=== PATIENT | female | born 1990 | race American Indian/Alaskan Native ===

== ENCOUNTER 2021-05-23 10:50 | Emergency (ER) | payer MEDICARE, OTHER ==
[2021-05-23 11:21] VITALS: BP 117/75
[2021-05-23] MEDS ORDERED: MECLIZINE 25 MG TAB PO ONE (11:29)
[2021-05-23 11:52] LABS: Basophils % (Auto) 0.3 % (0.0-1.8); Eosinophils # (Auto) 0.2 K/mm3 (0.0-0.4); Eosinophils % (Auto) 2.2 % (0.0-4.3); Lymphocytes # (Auto) 2.4 K/mm3 (1.2-5.4); Lymphocytes % (Auto) 32.5 % (13.4-35.0); Mean Corpuscular HGB Conc 31 % (30-34); Mean Corpuscular Volume 77 fl (79-97); Monocytes # (Auto) 0.5 K/mm3 (0.0-0.8); Monocytes % (Auto) 6.8 % (0.0-7.3); Platelet Count 415 K/mm3 (140-440); Red Cell Distribution Width 16.3 % (13.2-15.2)
--- NOTE | 2021-05-23 12:01 | Emergency Department Report ---
- General Chief Complaint: Dizziness Stated Complaint: COLD AND CONGESTION Time Seen by Provider: 05/23/21 11:21 Source: patient Mode of arrival: Ambulatory Limitations: No Limitations - History of Present Illness Initial Comments: Patient is a 30-year-old female presents emergency room complaints of "cold-like symptoms" that began 4 days ago. Patient states that she also got her fianc sick as well. She has associated cough, congestion, rhinorrhea, chills, generalized body aches, fatigue, dizziness, generalized weakness, nausea, intermittent vomiting. She is able to tolerate p.o. intake. She states initially she had a fever but it is resolved. She denies any known sick contacts or recent travel. She has not been vaccinated for COVID-19. No past medical history. No allergies to medications. - Related Data Previous Rx's Medication Instructions Recorded Last Taken Type Benzonatate [Tessalon Perles] 100 mg PO Q8HR PRN #12 capsule 05/23/21 Unknown Rx Meclizine [Antivert] 25 mg PO TID PRN #21 tablet 05/23/21 Unknown Rx guaiFENesin ER [Mucinex ER] 600 mg PO Q12H #12 tablet.er 05/23/21 Unknown Rx Allergies Allergy/AdvReac Type Severity Reaction Status Date / Time No Known Allergies Allergy Unverified 05/23/21 11:14 ED Review of Systems ROS: Stated complaint: COLD AND CONGESTION Other details as noted in HPI Comment: All other systems reviewed and negative ED Past Medical Hx - Past Medical History Previous Medical History?: No - Surgical History Past Surgical History?: No - Medications Home Medications: Home Medications Medication Instructions Recorded Confirmed Last Taken Type Benzonatate [Tessalon Perles] 100 mg PO Q8HR PRN #12 capsule 05/23/21 Unknown Rx Meclizine [Antivert] 25 mg PO TID PRN #21 tablet 05/23/21 Unknown Rx guaiFENesin ER [Mucinex ER] 600 mg PO Q12H #12 tablet.er 05/23/21 Unknown Rx ED Physical Exam - General Limitations: No Limitations General appearance: alert, in no apparent distress - Head Head exam: Present: atraumatic, normocephalic - Eye Eye exam: Present: normal appearance - ENT ENT exam: Present: normal orophraynx, mucous membranes moist, TM's normal bilaterally, normal external ear exam - Respiratory Respiratory exam: Present: normal lung sounds bilaterally. Absent: respiratory distress, wheezes, rales, rhonchi, stridor, chest wall tenderness, accessory muscle use, decreased breath sounds, prolonged expiratory - Cardiovascular Cardiovascular Exam: Present: regular rate, normal rhythm, normal heart sounds. Absent: systolic murmur, diastolic murmur, rubs, gallop - Neurological Exam Neurological exam: Present: alert, oriented X3 - Psychiatric Psychiatric exam: Present: normal affect, normal mood - Skin Skin exam: Present: warm, dry, intact ED Course Vital Signs 05/23/21 11:20 Temperature 98.1 F Pulse Rate 85 Respiratory 18 Rate Blood Pressure 117/75 O2 Sat by Pulse 97 Oximetry ED Medical Decision Making - Lab Data Result diagrams: 05/23/21 11:37 05/23/21 11:37 Lab Results 05/23/21 05/23/21 Range/Units 11:37 11:37 WBC 7.5 (4.5-11.0) K/mm3 RBC 5.50 H (3.65-5.03) M/mm3 Hgb 13.0 (10.1-14.3) gm/dl Hct 42.3 (30.3-42.9) % MCV 77 L (79-97) fl MCH 24 L (28-32) pg MCHC 31 (30-34) % RDW 16.3 H (13.2-15.2) % Plt Count 415 (140-440) K/mm3 Lymph % (Auto) 32.5 (13.4-35.0) % Maverick % (Auto) 6.8 (0.0-7.3) % Eos % (Auto) 2.2 (0.0-4.3) % Baso % (Auto) 0.3 (0.0-1.8) % Lymph # (Auto) 2.4 (1.2-5.4) K/mm3 Maverick # (Auto) 0.5 (0.0-0.8) K/mm3 Eos # (Auto) 0.2 (0.0-0.4) K/mm3 Baso # (Auto) 0.0 (0.0-0.1) K/mm3 Seg Neutrophils % 58.2 (40.0-70.0) % Seg Neutrophils # 4.4 (1.8-7.7) K/mm3 Sodium 137 (137-145) mmol/L Potassium 4.0 (3.6-5.0) mmol/L Chloride 99.3 (98-107) mmol/L Carbon Dioxide 25 (22-30) mmol/L Anion Gap 17 mmol/L BUN 13 (7-17) mg/dL Creatinine 0.6 (0.6-1.2) mg/dL Estimated GFR > 60 ml/min BUN/Creatinine Ratio 22 % Glucose 115 H (65-100) mg/dL Calcium 9.5 (8.4-10.2) mg/dL Total Bilirubin 0.20 (0.1-1.2) mg/dL AST 12 (5-40) units/L ALT 13 (7-56) units/L Alkaline Phosphatase 101 (35-129) units/L Total Protein 8.8 H (6.3-8.2) g/dL Albumin 4.0 (3.9-5) g/dL Albumin/Globulin Ratio 0.8 % - Radiology Data Radiology results: report reviewed Ordering Physician: ANY ZAYAS Date of Service: 05/23/21 Procedure(s): XR chest routine 2V Accession Number(s): [id number] cc: ANY ZAYAS Fluoro Time In Minutes: XR chest routine 2V INDICATION / CLINICAL INFORMATION: cough, sob COMPARISON: None available. FINDINGS: SUPPORT DEVICES: None. HEART / MEDIASTINUM: No significant abnormality. LUNGS / PLEURA: Lungs are clear. Costophrenic sulci are sharp. No pneumothorax. ADDITIONAL FINDINGS: No significant additional findings. IMPRESSION: 1. No acute findings. Signer Name: Dionisio Virk MD Signed: 05/23/2021 12:16 PM Workstation Name: [id number] Transcribed By: Dictated By: Dionisio Virk MD Electronically Authenticated By: Dionisio Virk MD Signed Date/Time: 05/23/21 121 DD/ 15 TD/TT: - Medical Decision Making Patient is a 30-year-old female presents emergency room complaints of "cold-like symptoms" that began 4 days ago. Patient states that she also got her fianc sick as well. She has associated cough, congestion, rhinorrhea, chills, generalized body aches, fatigue, dizziness, generalized weakness, nausea, intermittent vomiting. She is able to tolerate p.o. intake. She states initial ly she had a fever but it is resolved. She denies any known sick contacts or recent travel. She has not been vaccinated for COVID-19. No past medical history. No allergies to medications. Vitals are normal. Breath sounds are clear bilaterally, no wheezing, no rales, no rhonchi. Labs are stable. Chest x-ray 1. No acute findings. Symptoms likely related to URI. Patient has no clinical signs of bacterial pneumonia or bacterial bronchitis at this time. Advised patient Please take medication as prescribed. Increase your fluid intake. Follow-up with your primary care doctor. Return to emergency room immediately for any new or worsening symptoms. Recommend outpatient COVID-19 testing if positive please self quarantine for 10 days from onset of symptoms. Critical care attestation.: If time is entered above; I have spent that time in minutes in the direct care of this critically ill patient, excluding procedure time. ED Disposition Clinical Impression: Upper respiratory infection Qualifiers: URI type: unspecified URI Qualified Code(s): J06.9 - Acute upper respiratory infection, unspecified Disposition: 01 HOME / SELF CARE / HOMELESS Is pt being admited?: No Does the pt Need Aspirin: No Condition: Stable Instructions: Viral Respiratory Infection Additional Instructions: Please take medication as prescribed. Increase your fluid intake. Follow-up with your primary care doctor. Return to emergency room immediately for any new or worsening symptoms. Recommend outpatient COVID-19 testing if positive please self quarantine for 10 days from onset of symptoms. Prescriptions: Meclizine [Antivert] 25 mg PO TID PRN #21 tablet PRN Reason: dizziness/nausea guaiFENesin ER [Mucinex ER] 600 mg PO Q12H #12 tablet.er Benzonatate [Tessalon Perles] 100 mg PO Q8HR PRN #12 capsule PRN Reason: cough Referrals: PRIMARY CARE, [Primary Care Provider] - 2-3 Days Time of Disposition: 12:50 Print Language: POLISH
[2021-05-23 12:04] LABS: Hematocrit 42.3 % (30.3-42.9)
--- NOTE | 2021-05-23 12:21 | XRay Report ---
XR chest routine 2V INDICATION / CLINICAL INFORMATION: cough, sob COMPARISON: None available. FINDINGS: SUPPORT DEVICES: None. HEART / MEDIASTINUM: No significant abnormality. LUNGS / PLEURA: Lungs are clear. Costophrenic sulci are sharp. No pneumothorax. ADDITIONAL FINDINGS: No significant additional findings. IMPRESSION: 1. No acute findings. Signer Name: Dionisio Virk MD Signed: 05/23/2021 12:16 PM Workstation Name: [id number]
[2021-05-23 12:39] LABS: Alanine Aminotransferase 13 units/L (7-56); Blood Urea Nitrogen 13 mg/dL (7-17); Calcium 9.5 mg/dL (8.4-10.2); Hemolysis Index 7
[2021-05-23 12:40] LABS: BUN/Creatinine Ratio 22
== END 2021-05-23 13:07 | disposition home or self-care (01) ==
LOC: ED 10:50
DX: J06.9 Acute upper respiratory infection, unspecified (principal); Z79.899 Other long term (current) drug therapy
CPT/HCPCS: 36415; 71046; 80053; 85025; 99283